=== PATIENT | male | born 1950 | race Caucasian/White ===

== ENCOUNTER 2018-11-06 06:52 | Inpatient (IN) | payer MEDICARE, OTHER ==
[2018-11-06 07:46] LABS: ADD MAN DIFF? NO
[2018-11-06 07:50] LABS: BASOPHIL # 0.1 10^3/ul (0.0-0.1); BASOPHILS % 0.8 % (0.0-2.0); EOSINOPHILS # 0.2 10^3/ul (0.0-0.5); EOSINOPHILS % 3.3 % (0.0-7.0); HEMATOCRIT 40.1 % (42.0-52.0); HEMOGLOBIN 12.8 g/dl (14.0-18.0); LYMPHOCYTES # 1.8 10^3/ul (0.8-2.9); LYMPHOCYTES % 28.2 % (15.0-51.0); MEAN CORPUSCULAR HEMOGLOBIN 28.8 pg (29.0-33.0); MEAN CORPUSCULAR HGB CONC 31.9 g/dl (32.0-37.0); MEAN CORPUSCULAR VOLUME 90.3 fl (82.0-101.0); MONOCYTE # 0.6 10^3/ul (0.3-0.9); NEUTROPHIL # 3.7 10^3/ul (1.6-7.5); NEUTROPHILS % 58.5 % (39.0-77.0); PLATELET COUNT 185 10^3/UL (140-415); RED BLOOD COUNT 4.44 10^6/ul (4.70-6.10); RED CELL DISTRIBUTION WIDTH 14.3 % (11.5-14.5)
[2018-11-06 07:50] LABS: WHITE BLOOD COUNT 6.3 10^3/ul (4.8-10.8)
[2018-11-06] MEDS: SOD CHLORIDE 0.9% 500 ML IV (08:05)
[2018-11-06 08:08] LABS: ANION GAP 11 (5-13); BLOOD UREA NITROGEN 23 mg/dl (7-20); CALCIUM 9.3 mg/dl (8.4-10.2); CARBON DIOXIDE 27 mmol/L (21-31); CHLORIDE 103 mmol/L (97-110); CREATININE 1.36 mg/dl (0.61-1.24); Estimated GFR 52 mL/min (>60); GLUCOSE 183 mg/dl (70-220); POTASSIUM 4.7 mmol/L (3.5-5.1); SODIUM 141 mmol/L (135-144)
[2018-11-06 08:19] LABS: B-TYPE NATRIURETIC PEPTIDE 147 PG/ML (0-125); TROPONIN-I < 0.012 ng/ml (0.000-0.120)
[2018-11-06 11:53] LABS: C-REACTIVE PROTEIN < 0.5 mg/dl (0.0-0.9)
[2018-11-06] MEDS: VANCOMYCIN 1 GM (PMX) 250 ML IVPB (12:16)
[2018-11-06] MEDS ORDERED: NACL 0.9% 3 ML SYG IV (14:00)
[2018-11-06] MEDS ORDERED: ONDANSETRON 4 MG INJ IV ×2 (14:00)
[2018-11-06] MEDS ORDERED: ACETAMINOPHEN 325 MG TAB PO ×2 (14:00)
[2018-11-06] MEDS ORDERED: HYDROCODONE/APAP (5/325) TAB PO (14:00)
[2018-11-06] MEDS ORDERED: VANCOMYCIN IV PER PHARMACY XX (14:00)
[2018-11-06] MEDS ORDERED: GLUCOSE GEL 15 GRAM TUBE PO ×2 (14:30)
[2018-11-06] MEDS ORDERED: DEXTROSE 50% 50 ML SYRINGE IV ×2 (14:30)
[2018-11-06] MEDS ORDERED: GLUCOSE GEL 15 GRAM TUBE BUCCAL (14:30)
[2018-11-06] MEDS ORDERED: GLUCAGON 1 MG INJ IM (14:30)
[2018-11-06 14:45] LABS: FREE T4 (FREE THYROXINE) 0.95 ng/dl (0.78-2.44)
[2018-11-06] MEDS: VANCOMYCIN 1 GM in 250 ML IVPB (16:34)
[2018-11-06] MEDS: SOD CHLORIDE 0.9% 1,000 ML IV (16:34)
[2018-11-06] MEDS: INSULIN ASPART [NOVOLOG] 3 ML PEN SC ×3 (17:41→21:00)
[2018-11-06] MEDS ORDERED: INSULIN GLARGINE [LANTus] (100 UNITS/ML) SYG SC (20:00)
[2018-11-06] MEDS: INSULIN GLARGINE [LANTus] (100 UNITS/ML) SYG SC (21:37)
[2018-11-06] MEDS: GABAPENTIN 300 MG CAP PO (21:38)
[2018-11-06] MEDS: ATORVASTATIN 80 MG TAB PO (21:38)
[2018-11-06] MEDS: METOPROLOL (XL) 25 MG TAB PO (22:48)
[2018-11-07] MEDS: ACCU-CHEK XX (02:00)
[2018-11-07] MEDS: VANCOMYCIN 1 GM 250 ML IVPB ×2 (05:06→19:26)
[2018-11-07] MEDS: hydrALAzine 20 MG INJ IV (05:06)
[2018-11-07 05:51] LABS: ADD MAN DIFF? NO
[2018-11-07 05:54] LABS: BASOPHILS % 0.6 % (0.0-2.0); EOSINOPHILS # 0.2 10^3/ul (0.0-0.5); EOSINOPHILS % 3.7 % (0.0-7.0); HEMATOCRIT 39.8 % (42.0-52.0); HEMOGLOBIN 12.9 g/dl (14.0-18.0); LYMPHOCYTES # 1.8 10^3/ul (0.8-2.9); LYMPHOCYTES % 27.6 % (15.0-51.0); MEAN CORPUSCULAR HEMOGLOBIN 28.9 pg (29.0-33.0); MEAN CORPUSCULAR HGB CONC 32.4 g/dl (32.0-37.0); MEAN PLATELET VOLUME 10.1 fl (7.4-10.4); MONOCYTE # 0.6 10^3/ul (0.3-0.9); MONOCYTES % 8.4 % (0.0-11.0); NEUTROPHIL # 3.9 10^3/ul (1.6-7.5); NEUTROPHILS % 59.4 % (39.0-77.0); PLATELET COUNT 183 10^3/UL (140-415); RED BLOOD COUNT 4.47 10^6/ul (4.70-6.10); RED CELL DISTRIBUTION WIDTH 14.1 % (11.5-14.5)
[2018-11-07 05:54] LABS: WHITE BLOOD COUNT 6.6 10^3/ul (4.8-10.8)
[2018-11-07 06:10] LABS: HEMOGLOBIN A1C 7.9 % (0-5.9)
[2018-11-07 06:19] LABS: PHOSPHORUS 4.1 mg/dl (2.5-4.9)
[2018-11-07 06:31] LABS: ALANINE AMINOTRANSFERASE 31 IU/L (13-69); ALBUMIN 3.9 g/dl (3.3-4.9); ALKALINE PHOSPHATASE 114 IU/L (42-121); ANION GAP 11 (5-13); ASPARTATE AMINO TRANSFERASE 23 IU/L (15-46); BILIRUBIN,INDIRECT 0.5 mg/dl (0-1.1); BILIRUBIN,TOTAL 0.5 mg/dl (0.2-1.3); BLOOD UREA NITROGEN 22 mg/dl (7-20); CALCIUM 9.3 mg/dl (8.4-10.2); CARBON DIOXIDE 26 mmol/L (21-31); CHLORIDE 105 mmol/L (97-110); CHOL/HDL RATIO 2.9 RATIO; CHOLESTEROL 90 mg/dl (100-200); CREATININE 0.99 mg/dl (0.61-1.24); Estimated GFR > 60 mL/min (>60); GLUCOSE 138 mg/dl (70-220); HDL CHOLESTEROL 31 mg/dl (31-75); LDL CHOLESTEROL,CALCULATED 40 mg/dl; MAGNESIUM 1.6 mg/dl (1.7-2.5); POTASSIUM 4.1 mmol/L (3.5-5.1); SODIUM 142 mmol/L (135-144); TOTAL PROTEIN 6.9 g/dl (6.1-8.1); TRIGLYCERIDES 93 mg/dl (0-149)
[2018-11-07] MEDS: INSULIN ASPART [NOVOLOG] 3 ML PEN SC ×7 (08:00→20:33)
[2018-11-07] MEDS: INSULIN GLARGINE [LANTus] (100 UNITS/ML) SYG SC ×2 (08:28→20:31)
[2018-11-07] MEDS ORDERED: PIOGLITAZONE 30 MG TAB PO (09:00)
[2018-11-07] MEDS: SODIUM HYPOCHLORITE (1/40) 1 APPLIC BTL IRR (09:00)
[2018-11-07 10:49] LABS: ADD UMIC NO; UR ASCORBIC ACID NEGATIVE (NEGATIVE); UR BILIRUBIN (Dip) NEGATIVE (NEGATIVE); UR BLOOD (Dip) NEGATIVE (NEGATIVE); UR CLARITY CLEAR (CLEAR); UR COLOR STRAW (YELLOW); UR GLUCOSE (Dip) NEGATIVE (NEGATIVE); UR KETONES (Dip) NEGATIVE (NEGATIVE); UR LEUKOCYTE ESTERASE (Dip) NEGATIVE Leu/ul (NEGATIVE); UR NITRITE (Dip) NEGATIVE (NEGATIVE); UR SPECIFIC GRAVITY (Dip) 1.009 (1.003-1.030); UR TOTAL PROTEIN (Dip) NEGATIVE (NEGATIVE); UR UROBILINOGEN (Dip) NEGATIVE (NEGATIVE)
[2018-11-07] MEDS: MAGNESIUM OXIDE 400 MG TAB PO (10:51)
[2018-11-07] MEDS: CLOPIDOGREL 75 MG TAB PO (10:52)
[2018-11-07] MEDS: ASPIRIN 81 MG TAB PO (10:53)
[2018-11-07] MEDS: METOPROLOL (XL) 25 MG TAB PO (10:58)
[2018-11-07 10:59] LABS: CREATININE,URINE RANDOM 32.26 mg/dl (20-370)
[2018-11-07 10:59] LABS: SODIUM,URINE RANDOM 136 mmol/L (30-90)
[2018-11-07] MEDS: morphine 2 MG INJ IV (12:57)
[2018-11-07] MEDS: SOD CHLORIDE 0.9% 1,000 ML IV (14:30)
[2018-11-07] MEDS: MAGNESIUM SULFATE 2 GM/50 ML 50 ML IVPB (17:02)
[2018-11-07] MEDS: metFORMIN 500 MG TAB PO (18:05)
[2018-11-07] MEDS: HEPARIN 5,000 UNIT/1 ML VIAL SC (20:32)
[2018-11-07] MEDS: GABAPENTIN 300 MG CAP PO (20:34)
[2018-11-07] MEDS: ATORVASTATIN 80 MG TAB PO (20:34)
[2018-11-08] MEDS: ACCU-CHEK XX (01:42)
[2018-11-08 04:45] LABS: ANION GAP 9 (5-13); BLOOD UREA NITROGEN 19 mg/dl (7-20); CALCIUM 9.4 mg/dl (8.4-10.2); CARBON DIOXIDE 27 mmol/L (21-31); CHLORIDE 105 mmol/L (97-110); CREATININE 0.86 mg/dl (0.61-1.24); Estimated GFR > 60 mL/min (>60); GLUCOSE 159 mg/dl (70-220); PHOSPHORUS 4.1 mg/dl (2.5-4.9); POTASSIUM 4.2 mmol/L (3.5-5.1); SODIUM 141 mmol/L (135-144)
[2018-11-08 04:48] LABS: VANCOMYCIN,TROUGH 11.2 ug/ml (10.0-20.0)
[2018-11-08] MEDS: VANCOMYCIN 1 GM 250 ML IVPB (05:57)
[2018-11-08] MEDS: INSULIN ASPART [NOVOLOG] 3 ML PEN SC ×7 (08:00→20:19)
[2018-11-08] MEDS: INSULIN GLARGINE [LANTus] (100 UNITS/ML) SYG SC ×2 (08:14→20:19)
[2018-11-08] MEDS: metFORMIN 500 MG TAB PO ×2 (08:15→17:46)
[2018-11-08] MEDS: MAGNESIUM OXIDE 400 MG TAB PO (08:15)
[2018-11-08] MEDS: CLOPIDOGREL 75 MG TAB PO (08:15)
[2018-11-08] MEDS: HEPARIN 5,000 UNIT/1 ML VIAL SC ×2 (08:24→20:18)
[2018-11-08] MEDS: METOPROLOL (XL) 25 MG TAB PO (09:24)
[2018-11-08] MEDS: SODIUM HYPOCHLORITE (1/40) 1 APPLIC BTL IRR (09:24)
[2018-11-08] MEDS: ASPIRIN 81 MG TAB PO (09:24)
[2018-11-08] MEDS: VANCOMYCIN HCL 1.25 GM in SOD CHLORIDE 0.9% 250 ML IVPB (17:46)
[2018-11-08] MEDS: GABAPENTIN 300 MG CAP PO (20:17)
[2018-11-08] MEDS: ATORVASTATIN 80 MG TAB PO (20:17)
[2018-11-09] MEDS: ACCU-CHEK XX (02:00)
[2018-11-09] MEDS: VANCOMYCIN HCL 1.25 GM in SOD CHLORIDE 0.9% 250 ML IVPB ×2 (05:43→17:41)
[2018-11-09] MEDS: INSULIN ASPART [NOVOLOG] 3 ML PEN SC ×7 (08:00→20:39)
[2018-11-09] MEDS: metFORMIN 500 MG TAB PO ×2 (08:05→17:38)
[2018-11-09] MEDS: INSULIN GLARGINE [LANTus] (100 UNITS/ML) SYG SC ×2 (08:08→20:38)
[2018-11-09] MEDS: ASPIRIN 81 MG TAB PO (09:19)
[2018-11-09] MEDS: MAGNESIUM OXIDE 400 MG TAB PO (09:19)
[2018-11-09] MEDS: CLOPIDOGREL 75 MG TAB PO (09:19)
[2018-11-09] MEDS: METOPROLOL (XL) 25 MG TAB PO (09:20)
[2018-11-09] MEDS: HEPARIN 5,000 UNIT/1 ML VIAL SC ×2 (09:20→20:39)
[2018-11-09] MEDS: SODIUM HYPOCHLORITE (1/40) 1 APPLIC BTL IRR (09:29)
[2018-11-09] MEDS: GABAPENTIN 300 MG CAP PO (20:40)
[2018-11-09] MEDS: ATORVASTATIN 80 MG TAB PO (20:40)
[2018-11-10] MEDS: ACCU-CHEK XX (01:43)
[2018-11-10 04:38] LABS: BLOOD UREA NITROGEN 18 mg/dl (7-20)
[2018-11-10 04:43] LABS: VANCOMYCIN,TROUGH 13.9 ug/ml (10.0-20.0)
[2018-11-10] MEDS: VANCOMYCIN HCL 1.25 GM in SOD CHLORIDE 0.9% 250 ML IVPB ×2 (05:12→18:32)
[2018-11-10] MEDS: INSULIN ASPART [NOVOLOG] 3 ML PEN SC ×7 (08:00→21:00)
[2018-11-10] MEDS: INSULIN GLARGINE [LANTus] (100 UNITS/ML) SYG SC ×2 (08:24→21:19)
[2018-11-10] MEDS: HEPARIN 5,000 UNIT/1 ML VIAL SC ×2 (08:25→21:19)
[2018-11-10] MEDS: ASPIRIN 81 MG TAB PO (08:26)
[2018-11-10] MEDS: MAGNESIUM OXIDE 400 MG TAB PO (08:26)
[2018-11-10] MEDS: CLOPIDOGREL 75 MG TAB PO (08:26)
[2018-11-10] MEDS: metFORMIN 500 MG TAB PO ×2 (08:26→17:44)
[2018-11-10] MEDS: METOPROLOL (XL) 25 MG TAB PO (08:26)
[2018-11-10] MEDS: SODIUM HYPOCHLORITE (1/40) 1 APPLIC BTL IRR (08:27)
[2018-11-10 14:17] LABS: CREATININE, RANDOM URINE 34 mg/dL (20-320); MICROALBUMIN <0.2 mg/dL; MICROALBUMIN/CREATININE RATIO NOTE (<30)
[2018-11-10] MEDS: ATORVASTATIN 80 MG TAB PO (21:18)
[2018-11-10] MEDS: GABAPENTIN 300 MG CAP PO (21:18)
[2018-11-11] MEDS: ACCU-CHEK XX (02:00)
[2018-11-11] MEDS: VANCOMYCIN HCL 1.25 GM in SOD CHLORIDE 0.9% 250 ML IVPB ×2 (05:42→16:23)
[2018-11-11] MEDS: INSULIN ASPART [NOVOLOG] 3 ML PEN SC ×7 (08:00→20:33)
[2018-11-11] MEDS: SODIUM HYPOCHLORITE (1/40) 1 APPLIC BTL IRR (09:00)
[2018-11-11] MEDS: INSULIN GLARGINE [LANTus] (100 UNITS/ML) SYG SC ×2 (10:10→20:33)
[2018-11-11] MEDS: HEPARIN 5,000 UNIT/1 ML VIAL SC ×2 (10:11→20:33)
[2018-11-11] MEDS: metFORMIN 500 MG TAB PO ×2 (10:12→17:31)
[2018-11-11] MEDS: MAGNESIUM OXIDE 400 MG TAB PO (10:12)
[2018-11-11] MEDS: ASPIRIN 81 MG TAB PO (10:12)
[2018-11-11] MEDS: CLOPIDOGREL 75 MG TAB PO (10:13)
[2018-11-11] MEDS: METOPROLOL (XL) 25 MG TAB PO (10:13)
[2018-11-11] MEDS: ATORVASTATIN 80 MG TAB PO (20:32)
[2018-11-11] MEDS: GABAPENTIN 300 MG CAP PO (20:32)
== END 2018-11-11 21:42 | DRG 74 ==
LOC: E/R 06:52 → PP2 13:34
DX: E11.43 Type 2 diabetes mellitus with diabetic autonomic (poly)neuropathy (principal); M86.8X7 Other osteomyelitis, ankle and foot; N17.9 Acute kidney failure, unspecified; I16.1 Hypertensive emergency; E11.621 Type 2 diabetes mellitus with foot ulcer; L97.529 Non-pressure chronic ulcer of other part of left foot with unspecified severity; D64.9 Anemia, unspecified; E11.69 Type 2 diabetes mellitus with other specified complication; E11.22 Type 2 diabetes mellitus with diabetic chronic kidney disease; I25.10 Atherosclerotic heart disease of native coronary artery without angina pectoris; I12.9 Hypertensive chronic kidney disease with stage 1 through stage 4 chronic kidney disease, or unspecified chronic kidney disease; N18.9 Chronic kidney disease, unspecified; Z95.1 Presence of aortocoronary bypass graft; Z79.02 Long term (current) use of antithrombotics/antiplatelets; Z79.82 Long term (current) use of aspirin; Z79.4 Long term (current) use of insulin
CPT/HCPCS: 36415; 70450; 71045; 73630-LT; 76775; 80048; 80053; 80061; 80202; 81003; 82043; 82565; 82962; 83036; 83735; 83880; 84100; 84155; 84300; 84439; 84443; 84484; 84520; 85025; 85651; 86140; 93005; 96374; 99285-25; G0378